=== PATIENT | female | born 1980 | race Caucasian/White ===

== ENCOUNTER → 2023-06-26 13:30 | Outpatient (BNVA) | payer MEDICAID, SELFPAY | PROVIDERS: Family Provider Family Medicine; PCP Nurse Practitioner; Visit Provider Nurse Practitioner Family | DX: R05.9 Cough, unspecified (principal); R06.02 Shortness of breath; R06.2 Wheezing | CPT/HCPCS: 71046 ==

== ENCOUNTER → 2023-08-21 10:15 | Outpatient (BNVA) | payer MEDICAID, SELFPAY | PROVIDERS: Family Provider Family Medicine; PCP Nurse Practitioner Family; Visit Provider Family Medicine | DX: I26.09 Other pulmonary embolism with acute cor pulmonale (principal); G47.30 Sleep apnea, unspecified | CPT/HCPCS: 80053; 80061; 84439; 84443; 85007; 85027 ==

== ENCOUNTER → 2023-08-29 10:45 | Outpatient (BNVA) | payer MEDICAID, SELFPAY | PROVIDERS: Family Provider Family Medicine; PCP Nurse Practitioner Family; Visit Provider Family Medicine | DX: R74.01 Elevation of levels of liver transaminase levels (principal); I26.09 Other pulmonary embolism with acute cor pulmonale; G47.30 Sleep apnea, unspecified | CPT/HCPCS: 85025 ==

== ENCOUNTER 2023-09-12 06:03 | Outpatient (CLI) | payer MEDICAID, SELFPAY ==
--- NOTE | 2023-09-12 06:30 | US_ITS ---
WS: [id number] ULTRASOUND ABDOMEN CLINICAL INFORMATION: R74.01 - Elevation of levels of liver transaminase levels COMPARISON: None. FINDINGS: Technically difficult study due to body habitus. Liver Size: Mild hepatomegaly. Craniocaudal length: 17.8 cm. Echogenicity: Coarse Surface nodularity: None. Mass (size and location): Echogenic lesion in the RIGHT hepatic lobe measuring 1.7 x 1.3 x 1.1 cm lik jayesh cavernous hemangioma. Bile ducts Intrahepatic ducts: Normal. Common bile duct diameter: 0.2 cm. Gallbladder Normal. Gallstones: None. Gallbladder sludge: None. Gallbladder wall thickening: None. Pericholecystic fluid: None. Sonographic Gooden sign: Absent. Pancreas Not well seen Spleen Splenomegaly: None. Craniocaudal length: 10.3 cm. Right kidney: Normal. Hydronephrosis: None. Size: 11.5 cm x 4.8 cm x 4.9 cm Left kidney: Normal. Hydronephrosis: None. Size: 11.1 cm x 5.4 cm x 4.6 cm. Abdominal aorta and IVC Visualized portions are normal. Ascites: None. IMPRESSION: 1. Mild hepatomegaly with mild diffuse fatty infiltration. 2. Solid echogenic lesion RIGHT hepatic lobe 1.7 x 1.3 x 1.1 cm likely cavernous hemangioma. Recomme nd further evaluation with contrast-enhanced CT abdomen pelvis with liver hemangioma protocol 3. Normal gallbladder. 4. Normal common bile duct. 5. No hydronephrosis in either kidney.
== END 2023-09-12 06:04 | disposition home or self-care (01) ==
LOC: RAD 06:03
PROVIDERS: Family Provider Family Medicine; PCP Family Medicine; Visit Provider Family Medicine
DX: R74.01 Elevation of levels of liver transaminase levels (principal); I26.09 Other pulmonary embolism with acute cor pulmonale; K76.0 Fatty (change of) liver, not elsewhere classified; R16.0 Hepatomegaly, not elsewhere classified; K76.9 Liver disease, unspecified
CPT/HCPCS: 76700

== ENCOUNTER → 2023-09-20 10:50 | Outpatient (BNVA) | payer MEDICAID, SELFPAY | PROVIDERS: Family Provider Family Medicine; PCP Family Medicine; Referring Provider Family Medicine; Visit Provider Internal Medicine Pulmonary Disease | DX: I26.09 Other pulmonary embolism with acute cor pulmonale (principal); R06.02 Shortness of breath; I27.20 Pulmonary hypertension, unspecified; R79.89 Other specified abnormal findings of blood chemistry | CPT/HCPCS: 36415; 85651; 86038; 86140; 86200; 86235; 86431 ==

== ENCOUNTER 2023-09-28 13:36 | Outpatient (CLI) | payer MEDICAID, SELFPAY ==
[2023-09-28] MEDS: iohexol 350 mg/mL 500 mL Btl (per mL) PO (14:16)
[2023-09-28] MEDS: iohexol 350 mg/mL 500 mL Btl (per mL) IV (14:37)
--- NOTE | 2023-09-28 15:30 | CT_ITS ---
WS: [id number] CT ABDOMEN AND PELVIS WITH CONTRAST HISTORY: R74.01 - Elevation of levels of liver transaminase levels TECHNIQUE: Imaging performed of the abdomen and pelvis with IV contrast. Single phase imaging of the abdomen. Coronal and sagittal reformats are submitted. All CT scans at [facility] use at [address] one of these dose optimization techniques: automated exposure control; mA and/or kV adjustment per patient size (includes targeted exams where dose is matched to clinical indication); or iterative re construction. IV CONTRAST: Omnipaque 350; 100 mL IV. Oral contrast: Yes. DLP: 1033.18 mGy.cm COMPARISON: Abdomen ultrasound 09/12/2023 Lower thorax: Lung bases are clear. Heart is normal size. No hiatal hernia. Liver/biliary system: Liver is mildly enlarged. There numerous scattered very small low-attenuation l manda nodules throughout the liver which cannot be characterized due to their small size. The largest l ow-attenuation mass in the central RIGHT liver measures 8 mm. Hemangioma protocol was not performed a s recommended. No duct dilatation. Gallbladder: Normal. No gallstones or wall thickening. No pericholecystic fluid. Pancreas: Normal size pancreas and pancreatic duct. No adjacent inflammation. Spleen: Normal size spleen. Scattered splenic hypodense nodules are identified. Uncertain etiology. Adrenal glands: Normal. Right kidney: Normal. Left kidney: Normal. Aorta: Normal. Lymphadenopathy: None. Free fluid: None. GI tract: Unremarkable. Abdominal wall: Unremarkable abdominal wall. No hernia. Pelvis: No free fluid or adenopathy within the pelvis. Negative uterus and ovaries. Bones: Unremarkable. IMPRESSION: 1. Enlarged liver with too small to characterize hypodense nodules scattered throughout. These may b e tiny cysts. Additional differential includes metastatic disease, biliary hamartomas and tiny absces ses. The most likely etiology are too small to characterize cysts. No hemangioma identified. 2. Normal size spleen with numerous scattered hypodense nodules. Differential includes small splenic cysts, sarcoidosis or lymphoma. 3. Consider reevaluation of the liver and spleen by CT in 3 to 4 months. Recommend three-phase CT pr otocol for best characterization. 4. No GI tract obstruction. No adenopathy or ascites.
== END 2023-09-28 13:37 | disposition home or self-care (01) ==
LOC: RAD 13:37
PROVIDERS: Family Provider Family Medicine; PCP Family Medicine; Visit Provider Family Medicine
DX: R74.01 Elevation of levels of liver transaminase levels (principal); R93.89 Abnormal findings on diagnostic imaging of other specified body structures; R16.0 Hepatomegaly, not elsewhere classified; K76.89 Other specified diseases of liver; D73.89 Other diseases of spleen
CPT/HCPCS: 74177; Q9967

== ENCOUNTER 2023-10-23 14:34 | Oncology outpatient (recurring) (ONCR) | payer MEDICAID, SELFPAY ==
[2023-10-23 16:13] LABS: Basophils # 0.1 10^3/uL (0.0-0.1); Basophils % 0.7 %; Eosinophils # 0.2 10^3/uL (0.0-0.8); Eosinophils % 2.3 %; Hematocrit 54.5 % (36-47); Lymphocytes # 2.2 10^3/uL (0.8-4.8); Lymphocytes % 32.4 %; Mean Corpuscular HGB Conc 34.3 g/dL (30-55); Mean Corpuscular Hemoglobin 31.3 pg (27-33); Mean Corpuscular Volume 91.3 fl (85-98); Mean Platelet Volume 10.1 fL (7.4-10.4); Monocytes # 0.5 10^3/uL (0.2-0.9); Monocytes % 6.7 %; Neutrophils # 3.93 10^3/uL (1.8-7.7); Neutrophils % 57.3 %; Nucleated Red Blood Cells % 0 %; Platelet Count 209 10^3/cmm (157-399); Red Blood Count 5.97 10^6/uL (3.85-5.65); Red Cell Distribution Width 15.6 % (12.1-15.1); White Blood Count 6.86 10^3/uL (3.29-11.43)
[2023-10-23 16:58] LABS: Alanine Aminotransferase 32 U/L (0-33); Albumin Level 4.1 g/dL (3.5-5.2); Alkaline Phosphatase 115 U/L (35-105); Aspartate Amino Transferase 34 U/L (0-32); Blood Urea Nitrogen 18 mg/dL (6-20); Calcium 9.7 mg/dL (8.5-10.5); Carbon Dioxide 22 mmol/L (22-29); Chloride 101 mmol/L (98-107); Ferritin 77 ng/mL (15-150); Globulin 3.6 g/dL (1.3-4.6); Glomerular Filtration Rate 91.8 mL/min (90-130); Glucose 109 mg/dL (65-115); Iron 133 ug/dL (37-145); Osmolality Calculated 284 mOsm/kg (285-295); Percent Saturation 35.5 % (20-50); Sodium 136 mmol/L (136-145); Total Bilirubin 0.7 mg/dL (0.15-1.2); Total Iron Binding Capacity 374 mcg/dl; Total Protein 7.7 g/dL (6.6-8.7); Unsaturated Iron Binding 241 ug/dL (112-347)
[2023-10-23 17:03] LABS: Anion Gap 17.5 (5-19); Lactate Dehydrogenase 268 U/L (135-214); Potassium 4.5 mmol/L (3.5-5.1)
[2023-10-23 17:07] LABS: Hepatitis A Antibody IgM Non-Reactive (Nonreactive); Hepatitis B Core AB, Total Non-Reactive (Nonreactive); Hepatitis B Surface AB < 3.5 (11.5-1000); Hepatitis B Surface Antigen Non-Reactive (Nonreactive); Hepatitis C Virus Antibody Non-Reactive (Nonreactive)
[2023-10-24 15:11] LABS: Creatinine, Random Urine 20 mg/dL (20-275); Protein, Total, Random 14 mg/dL (5-24); Protein/Creatinine Ratio 700 mg/g creat (24-184)
[2023-10-25 08:05] LABS: PROTEIN, TOTAL 7.3 g/dL (6.1-8.1)
[2023-10-25 12:48] LABS: Albumin,Urine Random 100 %; Alpha-1-Globulins Urine Random 0 %; Alpha-2-Globulins Urine Random 0 %; Beta-Globulin,Urine Random 0 %; Gamma Globulin,Urine Random 0 %
[2023-10-26 08:21] LABS: KAPPA LIGHT CHAIN, FREE, SERUM 24.5 mg/L (3.3-19.4); KAPPA/LAMBDA LIGHT CHAINS FREE 1.43 (0.26-1.65); LAMBDA LIGHT CHAIN, FREE, SERU 17.1 mg/L (5.7-26.3)
[2023-10-26 13:11] LABS: Erythropoietin 36.3 mIU/mL (2.6-18.5)
[2023-10-26 17:19] LABS: ALBUMIN 4.2 g/dL (3.8-4.8); ALPHA 1 GLOBULIN 0.3 g/dL (0.2-0.3); ALPHA 2 GLOBULIN 0.7 g/dL (0.5-0.9); BETA 1 GLOBULIN 0.5 g/dL (0.4-0.6); BETA 2 GLOBULIN 0.4 g/dL (0.2-0.5); GAMMA GLOBULIN 1.2 g/dL (0.8-1.7)
[2023-10-31 18:15] LABS: CALR Exon 9 Mutation NOT DETECTED (NOT DETECTED); CSF3R Exon 14/17 Mutation NOT DETECTED (NOT DETECTED); JAK2 Exon 12 Mutation NOT DETECTED (NOT DETECTED); JAK2 V617 Block Specimen ID NG; JAK2 V617 Clinical Indication NG; JAK2 V617 Mutation NOT DETECTED (NOT DETECTED); JAK2 V617 Specimen Source NG; MPL Exon 12 Mutation NOT DETECTED (NOT DETECTED)
== END 2023-10-24 23:59 | disposition home or self-care (01) ==
PROVIDERS: Internal Medicine; PCP Family Medicine; Visit Provider Family Medicine
DX: D75.1 Secondary polycythemia (principal); D18.03 Hemangioma of intra-abdominal structures
CPT/HCPCS: 36415; 80053; 81270; 81279; 81339; 81479; 82570; 82668; 82728; 83540; 83550; 83615; 83883; 84155; 84156; 84165; 84166; 85025; 86334; 86705; 86706; 86709; 86803; 87340

== ENCOUNTER 2023-11-20 20:00 | Outpatient (CLI) | payer MEDICAID, SELFPAY | END 2023-11-20 20:01 | disposition home or self-care (01) | LOC: SLEEP 11-21 06:21 | PROVIDERS: PCP Family Medicine; Visit Provider Family Medicine | DX: G47.33 Obstructive sleep apnea (adult) (pediatric) (principal) | CPT/HCPCS: 95810 ==

== ENCOUNTER 2023-11-21 07:36 | Oncology outpatient (recurring) (ONCR) | payer MEDICAID, SELFPAY ==
[2023-11-21 08:05] LABS: Basophils % 0.8 %; Eosinophils # 0.1 10^3/uL (0.0-0.8); Eosinophils % 2.8 %; Hematocrit 52.9 % (36-47); Lymphocytes # 1.8 10^3/uL (0.8-4.8); Lymphocytes % 36.5 %; Mean Corpuscular HGB Conc 34.4 g/dL (30-55); Mean Platelet Volume 10.1 fL (7.4-10.4); Monocytes # 0.3 10^3/uL (0.2-0.9); Monocytes % 6.6 %; Neutrophils # 2.62 10^3/uL (1.8-7.7); Neutrophils % 52.5 %; Nucleated Red Blood Cells % 0 %; Platelet Count 205 10^3/cmm (157-399); Red Blood Count 5.69 10^6/uL (3.85-5.65); Red Cell Distribution Width 15.9 % (12.1-15.1); White Blood Count 4.99 10^3/uL (3.29-11.43)
[2023-11-21 08:22] LABS: Alanine Aminotransferase 48 U/L (0-33); Albumin Level 3.9 g/dL (3.5-5.2); Alkaline Phosphatase 115 U/L (35-105); Anion Gap 17.4 (5-19); Aspartate Amino Transferase 43 U/L (0-32); Blood Urea Nitrogen 30 mg/dL (6-20); Calcium 9.6 mg/dL (8.5-10.5); Carbon Dioxide 21 mmol/L (22-29); Chloride 104 mmol/L (98-107); Globulin 3.1 g/dL (1.3-4.6); Glomerular Filtration Rate 60.8 mL/min (90-130); Glucose 139 mg/dL (65-115); Osmolality Calculated 294 mOsm/kg (285-295); Potassium 4.4 mmol/L (3.5-5.1); Sodium 138 mmol/L (136-145); Total Bilirubin 0.5 mg/dL (0.15-1.2)
[2023-11-21 08:29] LABS: Lactate Dehydrogenase 258 U/L (135-214)
[2023-11-21] MEDS: sodium chloride 0.9% 250 ML IV (10:45)
[2023-11-21 11:07] VITALS: BP 134/86
== END 2023-11-22 23:59 | disposition home or self-care (01) ==
PROVIDERS: Internal Medicine; PCP Family Medicine; Visit Provider Family Medicine
DX: D75.1 Secondary polycythemia (principal)
CPT/HCPCS: 36415; 80053; 83615; 85025; 99195; J7050

== ENCOUNTER 2023-12-12 20:00 | Outpatient (CLI) | payer MEDICAID, SELFPAY | END 2023-12-12 20:01 | disposition home or self-care (01) | LOC: SLEEP 12-13 05:57 | PROVIDERS: PCP Family Medicine; Visit Provider Internal Medicine Pulmonary Disease | DX: G47.33 Obstructive sleep apnea (adult) (pediatric) (principal) | CPT/HCPCS: 95811 ==

== ENCOUNTER 2023-12-25 10:13 | Outpatient (CLI) | payer MEDICAID, SELFPAY | END 2023-12-25 10:14 | disposition home or self-care (01) | LOC: RT 10:14 | PROVIDERS: PCP Family Medicine; Visit Provider Internal Medicine Pulmonary Disease | DX: R06.02 Shortness of breath (principal) | CPT/HCPCS: 94010; 94618; 94726; 94729 ==

== ENCOUNTER 2023-12-25 12:59 | Oncology outpatient (recurring) (ONCR) | payer MEDICAID, SELFPAY ==
[2023-12-25 13:12] LABS: Basophils % 0.5 %; Eosinophils # 0.2 10^3/uL (0.0-0.8); Eosinophils % 1.9 %; Hematocrit 51.1 % (36-47); Lymphocytes # 2.3 10^3/uL (0.8-4.8); Lymphocytes % 29.6 %; Mean Corpuscular HGB Conc 33.5 g/dL (30-55); Mean Corpuscular Hemoglobin 31.8 pg (27-33); Mean Platelet Volume 10.5 fL (7.4-10.4); Monocytes # 0.6 10^3/uL (0.2-0.9); Monocytes % 7.8 %; Neutrophils # 4.58 10^3/uL (1.8-7.7); Neutrophils % 59.6 %; Nucleated Red Blood Cells % 0 %; Platelet Count 206 10^3/cmm (157-399); Red Blood Count 5.38 10^6/uL (3.85-5.65); Red Cell Distribution Width 13.9 % (12.1-15.1)
[2023-12-25 13:29] LABS: Alanine Aminotransferase 40 U/L (0-33); Albumin Level 4.2 g/dL (3.5-5.2); Alkaline Phosphatase 110 U/L (35-105); Anion Gap 17.4 (5-19); Aspartate Amino Transferase 44 U/L (0-32); Blood Urea Nitrogen 24 mg/dL (6-20); Calcium 9.7 mg/dL (8.5-10.5); Carbon Dioxide 20 mmol/L (22-29); Chloride 105 mmol/L (98-107); Globulin 3.4 g/dL (1.3-4.6); Glomerular Filtration Rate 68.7 mL/min (90-130); Glucose 119 mg/dL (65-115); Lactate Dehydrogenase 310 U/L (135-214); Osmolality Calculated 291 mOsm/kg (285-295); Potassium 4.4 mmol/L (3.5-5.1); Sodium 138 mmol/L (136-145); Total Bilirubin 0.8 mg/dL (0.15-1.2); Total Protein 7.6 g/dL (6.6-8.7)
[2023-12-25 16:19] VITALS: BP 105/62; PULSE 76; RESP 16; TEMP 36.9; O2SAT 95
== END 2024-01-22 23:59 | disposition home or self-care (01) ==
PROVIDERS: Internal Medicine; PCP Family Medicine; Visit Provider Family Medicine
DX: D75.1 Secondary polycythemia (principal)
CPT/HCPCS: 36415; 80053; 83615; 85025; 99195

== ENCOUNTER 2024-01-29 10:54 | Oncology outpatient (recurring) (ONCR) | payer MEDICAID, SELFPAY ==
[2024-01-29 11:29] LABS: Basophils # 0.1 10^3/uL (0.0-0.1); Basophils % 0.8 %; Eosinophils # 0.2 10^3/uL (0.0-0.8); Eosinophils % 2.4 %; Hematocrit 52.3 % (36-47); Lymphocytes # 1.8 10^3/uL (0.8-4.8); Lymphocytes % 28.4 %; Mean Corpuscular HGB Conc 32.7 g/dL (30-55); Mean Corpuscular Hemoglobin 30.3 pg (27-33); Mean Corpuscular Volume 92.6 fl (85-98); Mean Platelet Volume 10.2 fL (7.4-10.4); Monocytes # 0.5 10^3/uL (0.2-0.9); Monocytes % 7.4 %; Neutrophils # 3.84 10^3/uL (1.8-7.7); Neutrophils % 60.7 %; Nucleated Red Blood Cells % 0 %; Platelet Count 227 10^3/cmm (157-399); Red Blood Count 5.65 10^6/uL (3.85-5.65); Red Cell Distribution Width 13.6 % (12.1-15.1); White Blood Count 6.33 10^3/uL (3.29-11.43)
[2024-01-29 11:48] LABS: Alanine Aminotransferase 29 U/L (0-33); Albumin Level 4.4 g/dL (3.5-5.2); Alkaline Phosphatase 105 U/L (35-105); Anion Gap 16.2 (5-19); Aspartate Amino Transferase 31 U/L (0-32); Blood Urea Nitrogen 20 mg/dL (6-20); Carbon Dioxide 26 mmol/L (22-29); Chloride 101 mmol/L (98-107); Globulin 3.7 g/dL (1.3-4.6); Glomerular Filtration Rate 78.3 mL/min (90-130); Glucose 104 mg/dL (65-115); Osmolality Calculated 291 mOsm/kg (285-295); Potassium 4.2 mmol/L (3.5-5.1); Sodium 139 mmol/L (136-145); Total Protein 8.1 g/dL (6.6-8.7)
[2024-01-29 12:32] LABS: Lactate Dehydrogenase 276 U/L (135-214)
[2024-01-29 14:39] VITALS: PULSE 78; RESP 16; TEMP 36.6; O2SAT 96
== END 2024-02-22 23:59 | disposition home or self-care (01) ==
PROVIDERS: Nurse Practitioner Family; PCP Family Medicine; Visit Provider Family Medicine
DX: D75.1 Secondary polycythemia (principal); D18.03 Hemangioma of intra-abdominal structures
CPT/HCPCS: 36415; 80053; 83615; 85025; 99195

== ENCOUNTER 2024-03-18 08:57 | Oncology outpatient (recurring) (ONCR) | payer MEDICAID, SELFPAY ==
[2024-03-18 09:16] LABS: Basophils # 0.1 10^3/uL (0.0-0.1); Basophils % 0.9 %; Eosinophils # 0.1 10^3/uL (0.0-0.8); Eosinophils % 2.2 %; Hematocrit 48.8 % (36-47); Lymphocytes # 1.6 10^3/uL (0.8-4.8); Lymphocytes % 30.1 %; Mean Corpuscular HGB Conc 31.8 g/dL (30-55); Mean Corpuscular Hemoglobin 28.1 pg (27-33); Mean Corpuscular Volume 88.6 fl (85-98); Mean Platelet Volume 10.6 fL (7.4-10.4); Monocytes # 0.4 10^3/uL (0.2-0.9); Monocytes % 7.3 %; Neutrophils # 3.15 10^3/uL (1.8-7.7); Neutrophils % 58.9 %; Nucleated Red Blood Cells % 0 %; Platelet Count 238 10^3/cmm (157-399); Red Blood Count 5.51 10^6/uL (3.85-5.65); Red Cell Distribution Width 15.5 % (12.1-15.1); White Blood Count 5.35 10^3/uL (3.29-11.43)
[2024-03-18 09:37] LABS: Alanine Aminotransferase 20 U/L (0-33); Alkaline Phosphatase 95 U/L (35-105); Anion Gap 15.2 (5-19); Aspartate Amino Transferase 23 U/L (0-32); Blood Urea Nitrogen 26 mg/dL (6-20); Calcium 9.6 mg/dL (8.5-10.5); Carbon Dioxide 23 mmol/L (22-29); Chloride 103 mmol/L (98-107); Globulin 3.4 g/dL (1.3-4.6); Glomerular Filtration Rate 68.3 mL/min (90-130); Glucose 97 mg/dL (65-115); Lactate Dehydrogenase 260 U/L (135-214); Osmolality Calculated 289 mOsm/kg (285-295); Potassium 4.2 mmol/L (3.5-5.1); Sodium 137 mmol/L (136-145); Total Bilirubin 0.7 mg/dL (0.15-1.2); Total Protein 7.4 g/dL (6.6-8.7)
== END 2024-03-23 23:59 | disposition home or self-care (01) ==
PROVIDERS: Nurse Practitioner Family; PCP Family Medicine; Visit Provider Family Medicine
DX: D75.1 Secondary polycythemia (principal); D18.03 Hemangioma of intra-abdominal structures
CPT/HCPCS: 36415; 80053; 83615; 85025

== ENCOUNTER 2024-04-02 05:42 | Emergency (ER) | payer MEDICAID, SELFPAY ==
[2024-04-02] VITALS (9 sets, daily range): BP systolic 106–163; BP diastolic 70–97; PULSE 72–84; RESP 16–22; TEMP 36.6; O2SAT 92–97; BMI 42.4
--- NOTE | 2024-04-02 05:53 | XRR_ITS ---
PROCEDURE INFORMATION: Exam: XR Chest Exam date and time: 04/02/2024 5:58 AM Age: 44 years old Clinical indication: Angina; Additional info: Chest TECHNIQUE: Imaging protocol: Radiologic exam of the chest. Views: 1 view. COMPARISON: CR XR chest 2V* [id number] 06/26/2023 1:43 PM FINDINGS: Lungs: Unremarkable. No consolidation. Pleural spaces: Unremarkable. No pleural effusion. No pneumothorax. Heart/Mediastinum: Unremarkable. No cardiomegaly. Bones/joints: Unremarkable. XR/XR chest 1V portable [id number] IMPRESSION: No acute findings.
--- NOTE | 2024-04-02 06:00 | CTR_ITS ---
PROCEDURE INFORMATION: Exam: CTA Chest With Contrast Exam date and time: 04/02/2024 6:07 AM Age: 44 years old Clinical indication: Angina; Additional info: Chest pain, dyspnea TECHNIQUE: Imaging protocol: Computed tomographic angiography of the chest with contrast. Exam focused on the arteries. 3D rendering (Not supervised by radiologist): MIP and/or 3D reconstructed images were created by the technologist. Radiation optimization: All CT scans at this facility use at least one of these dose optimization techniques: automated exposure control; mA and/or kV adjustment per patient size (includes targeted exams where dose is matched to clinical indication); or iterative reconstruction. Contrast material: OMNI 350; Contrast volume: 62 ml; Contrast route: INTRAVENOUS (IV); COMPARISON: CR (CHEST, ) 04/02/2024 5:58 AM RADIATION DOSE METRICS: Total DLP (mGy-cm): 479.2 FINDINGS: Pulmonary arteries: The main pulmonary artery is dilated at 4.6 cm. The right main pulmonary artery is 3 cm, and left main pulmonary artery is 3.1 cm. Pulmonary arterial hypertension may be present. No evidence of pulmonary embolus. Aorta: Unremarkable. No aortic aneurysm. No aortic dissection. Lungs: Unremarkable. No consolidation. No masses. Pleural spaces: Unremarkable. No pneumothorax. No pleural effusion. Heart: Unremarkable. No cardiomegaly. No pericardial effusion. Lymph nodes: Unremarkable. No enlarged lymph nodes. Bones/joints: Unremarkable. No acute fracture. Soft tissues: Unremarkable. CT/CT angio chest PE protcl [id number] IMPRESSION: Likely pulmonary arterial hypertension. No embolus.
--- NOTE | 2024-04-02 06:01 | W.ED.CHESTPA ---
HPI - Chest Pain General: Chief Complaint: Shortness of Breath/Dyspnea Stated Complaint: JONA Sosa,Headree Time Seen by Provider: 04/02/24 05:52 Source: patient Mode of arrival: ambulatory History of Present Illness: 44-year-old female presents emergency room complaining of left-sided chest pain radiating to her back with cough for the last 2 days. She has a history of pulmonary hypertension. She was previously admitted to [facility] for this. She is also seen cardiology and heme-onc. She had polycythemia thought to be secondary to her pulmonary hypertension and sleep apnea for while she was getting phlebotomized. They have ceased that. There is note from cardiology they consider doing a right-sided heart cath but does not look as if that has been done to this point. She notes increasing shortness of breath with activity as well as chest discomfort. 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 No fever sweats or chills no productive cough. She was seeing Dr. Balbuena prior to his leaving service here. She does not have any old EKGs on the chart. MD complaint: chest pain Pertinent past history: other (Cor pulmonale) Onset (ago): day(s) (2) Timing of current episode: episodic Prior episodes: Yes Pain location: left chest Pain radiation: back Relieving factors: nothing Exacerbating factors: nothing Associated symptoms: Reports dyspnea; Deny abdominal pain, diaphoresis, fever(s), leg edema, nausea, palpitations, sense of impending doom, syncope or vomiting Review of Systems Const: Denies: fever(s) or diaphoresis Card: Reports: chest pain; Denies: palpitations or syncope Resp: Reports: dyspnea GI: Denies: abdominal pain, nausea or vomiting : Denies: dysuria, urinary frequency or urinary urgency Musc: Denies: neck pain or back pain Skin/Breast: Denies: rash PFSH ED PFSH: Medical History Hypertension Sleep apnea Cor pulmonale, acute History of methamphetamine use Social History Smoking and tobacco/nicotine status: former use of tobacco/nicotine Alcohol intake: never Female Reproductive History: Date of last menstrual period: 03/26/24 Physical Exam Const: GENERAL APPEARANCE: cooperative and comfortable ORIENTATION/CONSCIOUSNESS: Yes awake, Yes oriented to person, Yes oriented to place and Yes oriented to time HENMT: COMMON NORMALS: normocephalic, atraumatic and hearing grossly normal bilaterally HEAD & SCALP: normocephalic and atraumatic Resp: COMMON NORMALS: normal respiratory effort, No retractions, No use of accessory muscles and clear to auscultation bilaterally AUSCULTATION: clear to auscultation bilaterally Cardio: COMMON NORMALS: regular rate, regular rhythm and No murmurs present (Cardio) RATE: regular rate RHYTHM: regular rhythm GI: COMMON NORMALS: Soft to palpation and No hepatosplenomegaly present AUSCULTATION: Yes normoactive bowel sounds PALPATION: Yes Soft to palpation, No Tenderness to palpation present (GI), No Guarding due to palpation present (GI) and Yes No hepatosplenomegaly present Extremity: COMMON NORMALS: normal to inspection, capillary refill normal, no clubbing, cyanosis or edema, no calf tenderness and no pedal edema Neuro: SENSORIUM/ORIENTATION: Yes oriented to person, Yes oriented to place and Yes oriented to time Skin: COMMON NORMALS: no rashes or lesions noted GENERAL SKIN EXAM: no rashes or lesions noted Course Vital Signs: Vital signs: Vital Signs Temperature 97.8 F 04/02/24 10:59 Pulse Rate 78 04/02/24 10:59 Respiratory Rate 18 04/02/24 10:59 Blood Pressure 147/86 04/02/24 10:59 Pulse Oximetry 97 04/02/24 10:59 Oxygen Delivery Me thod Room Air 04/02/24 10:48 MDM - Chest Pain Medical Decision Making Cardiac enzymes negative EKG shows RVH ST depression. We did get an old EKG from [place] that does not show any significant change. I suspect her symptoms are due largely to her pulmonary hypertension. I discussed case with Dr. Cuellar as well. Also reviewed her previous cardiology notes from Dr. Bailey who had recommended a right heart cath at some point but she has not yet had this done. No acute coronary syndrome at this time will discharge patient home she did have improvement with nebulizers discharged home with DuoNebs to use as needed steroid taper. Set up for an outpatient echo a Lexiscan sestamibi stress test. Also set up for follow-up with cardiology and pulmonology Medical Records I reviewed the patient's medical records. Lab Data I reviewed the patient's lab results. 04/02/24 05:59 04/02/24 05:59 Radiology Impressions Chest X-Ray 04/02/24 05:53 IMPRESSION: No acute findings. Chest CTA 04/02/24 06:00 IMPRESSION: Likely pulmonary arterial hypertension. No embolus. Laboratory Results WBC 10.68 10^3/uL (3.29-11.43) 04/02/24 05:59 RBC 5.87 10^6/uL (3.85-5.65) H 04/02/24 05:59 Hgb 16.50 g/dL (11.27-16.99) 04/02/24 05:59 Hct 52.6 % (36-47) H 04/02/24 05:59 MCV 89.6 fl (85-98) 04/02/24 05:59 MCH 28.1 pg (27-33) 04/02/24 05:59 MCHC 31.4 g/dL (30-55) 04/02/24 05:59 RDW 16.2 % (12.1-15.1) H 04/02/24 05:59 Plt Count 216 10^3/cmm (157-399) 04/02/24 05:59 MPV 10.4 fL (7.4-10.4) 04/02/24 05:59 Neut % (Auto) 84.2 % 04/02/24 05:59 Lymph % (Auto) 11.0 % 04/02/24 05:59 [place] % (Auto) 3.4 % 04/02/24 05:59 Eos % (Auto) 0.6 % 04/02/24 05:59 Baso % (Auto) 0.3 % 04/02/24 05:59 Neut # (Auto) 9.01 10^3/uL (1.8-7.7) H 04/02/24 05:59 Lymph # (Auto) 1.2 10^3/uL (0.8-4.8) 04/02/24 05:59 [place] # (Auto) 0.4 10^3/uL (0.2-0.9) 04/02/24 05:59 Eos # (Auto) 0.1 10^3/uL (0.0-0.8) 04/02/24 05:59 Baso # (Auto) 0.0 10^3/uL (0.0-0.1) 04/02/24 05:59 Nucleated RBC % (auto) 0 % 04/02/24 05:59 Nucleated RBCs # 0.0 /100WBC 04/02/24 05:59 Sodium 138 mmol/L (136-145) 04/02/24 05:59 Potassium 4.4 mmol/L (3.5-5.1) 04/02/24 05:59 Chloride 100 mmol/L (98-107) 04/02/24 05:59 Carbon Dioxide 24 mmol/L (22-29) 04/02/24 05:59 Anion Gap 18.4 (5-19) 04/02/24 05:59 BUN 25 mg/dL (6-20) H 04/02/24 05:59 Creatinine 0.9 mg/dL (0.5-0.9) 04/02/24 05:59 GFR Calculation 68.3 mL/min (90-130) L 04/02/24 05:59 Glucose 163 mg/dL (65-115) H 04/02/24 05:59 Calculated Osmolality 294 mOsm/kg (285-295) 04/02/24 05:59 Calcium 9.7 mg/dL (8.5-10.5) 04/02/24 05:59 Total Bilirubin 0.5 mg/dL (0.15-1.2) 04/02/24 05:59 AST 26 U/L (0-32) 04/02/24 05:59 ALT 24 U/L (0-33) 04/02/24 05:59 Alkaline Phosphatase 111 U/L (35-105) H 04/02/24 05:59 Troponin T Baseline 7 ng/L (0-10) 04/02/24 05:59 Troponin T 120 Minute 6.00 ng/L (0-10) 04/02/24 07:41 Delta Troponin T -1.00 ABS# (0-10) L 04/02/24 07:41 NT-Pro-B Natriuret Pep 1514 pg/mL (0-125) H 04/02/24 05:59 Total Protein 7.6 g/dL (6.6-8.7) 04/02/24 05:59 Albumin 4.4 g/dL (3.5-5.2) 04/02/24 05:59 Globulin 3.2 g/dL (1.3-4.6) 04/02/24 05:59 Urine Color Yellow (Yellow) 04/02/24 06:21 Urine Appearance Clear (CLEAR) 04/02/24 06:21 Urine pH 5 (5-7) 04/02/24 06:21 Ur Specific [place] 1.010 (1.005-1.030) 04/02/24 06:21 Urine Protein 2+ (Negative) H 04/02/24 06:21 Urine Glucose (UA) Norm (Normal) 04/02/24 06:21 Urine Ketones Negative (Negative) 04/02/24 06:21 Urine Blood Neg (Negative) 04/02/24 06:21 Urine Nitrate Negative (Negative) 04/02/24 06:21 Urine Bilirubin Neg (Negative) 04/02/24 06:21 Urine Urobilinogen 1 mg/dL (Negative) H 04/02/24 06:21 Ur Leukocyte Esterase Trace (Negative) H 04/02/24 06:21 Urine RBC None /hpf (0-2) 04/02/24 06:21 Urine WBC 0-4 /hpf (0-5) H 04/02/24 06:21 Ur Squamous Epith Cells 5-10 /hpf (0-5) H 04/02/24 06:21 Amorphous Sediment Not Reportable 04/02/24 06:21 Urine Bacteria None /hpf (NONE) 04/02/24 06:21 All radiology interpretation(s) finalized by discharge Discharge Plan Discharge Patient Disposition: Home Clinical Impression: Pulmonary arterial hypertension Condition: Stable Prescriptions: New ipratropium-albuterol 0.5 mg-3 mg(2.5 mg base)/3 mL solution for nebulization 3 ml inhalation Q4H PRN (Reason: shortness of breath or wheezing) Qty: 90 0RF No Action furosemide 40 mg tablet 40 mg PO DAILY Qty: 90 3RF escitalopram oxalate 10 mg tablet 10 mg PO DAILY Qty: 30 1RF Rx Instructions: Take 1/2 tab for 14 days then 1 tab daily. lisinopril 10 mg tablet 20 mg PO DAILY Qty: 90 3RF Rx Instructions: 2 tabs in AM and 1 tab in PM spironolactone 25 mg tablet 25 mg PO DAILY Qty: 90 3RF alprazolam 0.5 mg tablet 0.5 mg PO BID PRN (Reason: anxiety) 30 Days Qty: 60 2RF amoxicillin-pot clavulanate 875-125 mg tablet 1 tab PO BID 10 Days Qty: 20 0RF codeine-guaifenesin 10-100 mg/5 mL liquid 5 ml PO Q6H PRN (Reason: allergy symptoms) Qty: 118 0RF prednisone 20 mg tablet 40 mg PO DAILY 5 Days Qty: 10 0RF Discharge Orders: Discharge ED (Routine); Ordered 04/02/24 Ordered By: Lewis Sheffield Referrals: Justin Landeros, [Primary Care Provider] - Discharge Diet: Usual diet Discharge Activity: Increase activity as tolerated Patient Instructions: Opioid Safety, Pain Management Activity Restrictions/Additional Instructions: Thank you for choosing [facility] for your healthcare needs today. It is very important that you follow up as instructed or that you return to the Emergency Department should you have concerns or if your condition changes or worsens in any way. You were seen today with complaints of shortness of breath with activity. Your cardiac enzymes were unremarkable. Your EKG shows changes consistent with your pulmonary hypertension after comparing it to EKGs you had done previously does not show anything that appears to be acute. We reviewed your old charts. I suspect that most of your symptoms are due to your pulmonary hypertension. You can use the nebulizer treatments to improve your breathing. Avoid heat and humidity as this may exacerbate your symptoms. Case management recommend make arrangements for you to follow-up with pulmonology and cardiology as well as having a repeat echocardiogram and a stress test. Return to the emergency room for further problems. Coding Level of Care Code ED [employer] [address]
--- NOTE | 2024-04-02 06:03 | ECG_ITS ---
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 Measurements Intervals [place] Rate: 82 P: 53 [place]: 159 QRS: 116 QRSD: 102 T: -67 QT: 355 QTc: 415 Interpretive Statements SINUS RHYTHM INCOMPLETE RIGHT BUNDLE BRANCH BLOCK [90+ ms QRS DURATION, TERMINAL R IN V1/V2, 40+ ms S IN I/aVL/V4/V5/V6] RIGHT VENTRICULAR HYPERTROPHY [SOME/ALL OF: PROMINENT R IN V1, LATE TRANSITION, RAD, BRIAN, SSS] ST DEVIATION AND MODERATE T-WAVE ABNORMALITY, CONSIDER ANTEROLATERAL ISCHEMIA [-0.1+ mV T-WAVE IN V3-V6] ST DEVIATION AND MODERATE T-WAVE ABNORMALITY, CONSIDER INFERIOR ISCHEMIA [-0.1+ mV T-WAVE IN II/aVF] No previous ECG available for comparison Electronically Signed On 04-02-2024 9:42:14 CDT by Tuan Rae M.D. [id number]
[2024-04-02] MEDS: aspirin 81 mg Chew Tablet 324 MG PO (06:06)
[2024-04-02 06:09] LABS: Basophils % 0.3 %; Eosinophils # 0.1 10^3/uL (0.0-0.8); Eosinophils % 0.6 %; Hematocrit 52.6 % (36-47); Lymphocytes # 1.2 10^3/uL (0.8-4.8); Mean Corpuscular HGB Conc 31.4 g/dL (30-55); Mean Corpuscular Hemoglobin 28.1 pg (27-33); Mean Corpuscular Volume 89.6 fl (85-98); Mean Platelet Volume 10.4 fL (7.4-10.4); Monocytes # 0.4 10^3/uL (0.2-0.9); Monocytes % 3.4 %; Neutrophils # 9.01 10^3/uL (1.8-7.7); Neutrophils % 84.2 %; Nucleated Red Blood Cells % 0 %; Platelet Count 216 10^3/cmm (157-399); Red Blood Count 5.87 10^6/uL (3.85-5.65); Red Cell Distribution Width 16.2 % (12.1-15.1); White Blood Count 10.68 10^3/uL (3.29-11.43)
[2024-04-02] MEDS: iohexol 350 mg/mL 500 mL Btl (per mL) IV (06:11)
[2024-04-02 06:23] LABS: Alanine Aminotransferase 24 U/L (0-33); Albumin Level 4.4 g/dL (3.5-5.2); Alkaline Phosphatase 111 U/L (35-105); Anion Gap 18.4 (5-19); Aspartate Amino Transferase 26 U/L (0-32); Blood Urea Nitrogen 25 mg/dL (6-20); Calcium 9.7 mg/dL (8.5-10.5); Carbon Dioxide 24 mmol/L (22-29); Chloride 100 mmol/L (98-107); Creatinine Clr Calc Pharmacy 109.5893; Globulin 3.2 g/dL (1.3-4.6); Glomerular Filtration Rate 68.3 mL/min (90-130); Glucose 163 mg/dL (65-115); Osmolality Calculated 294 mOsm/kg (285-295); Potassium 4.4 mmol/L (3.5-5.1); Sodium 138 mmol/L (136-145); Total Bilirubin 0.5 mg/dL (0.15-1.2); Total Protein 7.6 g/dL (6.6-8.7)
[2024-04-02 06:25] LABS: Troponin(5th) Baseline 7 ng/L (0-10)
[2024-04-02 06:45] LABS: Urine Appearance Clear (CLEAR); Urine Color Yellow (Yellow); pH Urine 5 (5-7)
[2024-04-02 06:46] LABS: Add Urine Culture? No; Add Urine Microscopic? YES; Bilirubin Urine Neg (Negative); Blood Urine Neg (Negative); Glucose Urine UA Norm (Normal); Ketones Urine Negative (Negative); Leukocyte Esterase Urine Trace (Negative); Nitrate Urine Negative (Negative); Protein Urine 2+ (Negative); Urobilinogen Urine 1 mg/dL (Negative); WBC Urine 0-4 /hpf (0-5)
[2024-04-02 07:09] LABS: NT Pro B Type Natriuretic Pept 1514 pg/mL (0-125)
--- NOTE | 2024-04-02 07:36 | PC.PHAR ---
PT VERIFIED MEDS AND HAD RX BOTTLES WITH HER. COUGH SYRUP NOT PICKED UP YET DUE TO PHARMACY HAD TO ORDER IT IN. LEXAPRO 10MG FROM 12/27/23-PICKED UP BUT NOT STARTED YET.
--- NOTE | 2024-04-02 08:11 | ECG_ITS ---
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 Measurements Intervals [place] Rate: 72 P: 50 [place]: 162 QRS: 124 QRSD: 92 T: -74 QT: 368 QTc: 404 Interpretive Statements SINUS RHYTHM INCOMPLETE RIGHT BUNDLE BRANCH BLOCK [90+ ms QRS DURATION, TERMINAL R IN V1/V2, 40+ ms S IN I/aVL/V4/V5/V6] RIGHT VENTRICULAR HYPERTROPHY [SOME/ALL OF: PROMINENT R IN V1, LATE TRANSITION, RAD, BRIAN, SSS] ST DEVIATION AND MODERATE T-WAVE ABNORMALITY, CONSIDER ANTEROLATERAL ISCHEMIA [-0.1+ mV T-WAVE IN V3-V6] ST DEVIATION AND MODERATE T-WAVE ABNORMALITY, CONSIDER INFERIOR ISCHEMIA [-0.1+ mV T-WAVE IN II/aVF] Compared to ECG 04/02/2024 06:03:20 No significant changes Electronically Signed On 04-02-2024 9:43:30 CDT by Tuan Rae M.D. [id number]
[2024-04-02] MEDS: ipratropium-albuterol 3 mL Neb INHALATION (08:50)
[2024-04-02] MEDS: dexamethasone 10 mg/mL INJ IM (08:58)
--- NOTE | 2024-04-02 11:55 | DCPLANNER ---
faxed echo and lexiscan orders to scheduling. heart/lung appt already made.
--- NOTE | 2024-04-02 12:52 | DCPLANNER ---
faxed outpatient echo to scheduling for er f/u
== END 2024-04-02 11:03 | disposition home or self-care (01) ==
PROVIDERS: Emergency Provider Family Medicine; PCP Family Medicine
DX: I27.21 Secondary pulmonary arterial hypertension (principal); I49.8 Other specified cardiac arrhythmias; I45.10 Unspecified right bundle-branch block; R94.31 Abnormal electrocardiogram [ECG] [EKG]
CPT/HCPCS: 36415; 71045; 71275; 80053; 81001; 83880; 84484; 85025; 93005; 94640; 96374; 99285; J1100; Q9967

== ENCOUNTER 2024-06-17 10:19 | Outpatient (CLI) | payer MEDICAID, SELFPAY ==
[2024-06-17 11:08] LABS: Anion Gap 16.2 (5-19); Blood Urea Nitrogen 9 mg/dL (6-20); Calcium 9.7 mg/dL (8.5-10.5); Carbon Dioxide 23 mmol/L (22-29); Chloride 102 mmol/L (98-107); Glomerular Filtration Rate 109.1 mL/min (90-130); Glucose 105 mg/dL (65-115); NT Pro B Type Natriuretic Pept 206 pg/mL (0-125); Osmolality Calculated 285 mOsm/kg (285-295); Potassium 3.2 mmol/L (3.5-5.1); Sodium 138 mmol/L (136-145)
== END 2024-06-17 10:20 | disposition home or self-care (01) ==
LOC: LAB 10:22
PROVIDERS: PCP Nurse Practitioner Family; Visit Provider Internal Medicine Pulmonary Disease
DX: I50.812 Chronic right heart failure (principal)
CPT/HCPCS: 36415; 80048; 83880

== ENCOUNTER → 2024-08-15 09:10 | Outpatient (BNVA) | payer MEDICAID, SELFPAY | PROVIDERS: PCP Nurse Practitioner Family; Visit Provider Nurse Practitioner Family | DX: R05.9 Cough, unspecified (principal); R52 Pain, unspecified | CPT/HCPCS: 87400 ==

== ENCOUNTER → 2024-09-30 09:30 | Outpatient (BNVA) | payer MEDICAID, SELFPAY | PROVIDERS: PCP Nurse Practitioner Family; Visit Provider Family Medicine | DX: J20.9 Acute bronchitis, unspecified (principal); R79.89 Other specified abnormal findings of blood chemistry; I50.811 Acute right heart failure; I27.21 Secondary pulmonary arterial hypertension; E87.6 Hypokalemia; E83.42 Hypomagnesemia; J20.8 Acute bronchitis due to other specified organisms | CPT/HCPCS: 80053; 82607; 82728; 83540; 83735; 83880; 85025 ==

== ENCOUNTER 2024-12-16 12:03 | Outpatient (CLI) | payer MEDICAID, SELFPAY ==
[2024-12-16 13:10] LABS: Basophils % 0.5 %; Eosinophils # 0.2 10^3/uL (0.0-0.8); Eosinophils % 2.7 %; Hematocrit 40.2 % (36-47); Lymphocytes # 1.5 10^3/uL (0.8-4.8); Lymphocytes % 27.3 %; Mean Corpuscular HGB Conc 31.3 g/dL (30-55); Mean Corpuscular Hemoglobin 25.6 pg (27-33); Mean Corpuscular Volume 81.7 fl (85-98); Mean Platelet Volume 9.7 fL (7.4-10.4); Monocytes # 0.4 10^3/uL (0.2-0.9); Monocytes % 6.9 %; Neutrophils % 62.1 %; Nucleated Red Blood Cells % 0 %; Platelet Count 163 10^3/cmm (157-399); Red Blood Count 4.92 10^6/uL (3.85-5.65); Red Cell Distribution Width 15.1 % (12.1-15.1); White Blood Count 5.64 10^3/uL (3.29-11.43)
[2024-12-16 13:41] LABS: Alanine Aminotransferase 21 U/L (0-33); Albumin Level 4.2 g/dL (3.5-5.2); Alkaline Phosphatase 92 U/L (35-105); Anion Gap 18.6 (5-19); Aspartate Amino Transferase 20 U/L (0-32); Blood Urea Nitrogen 15 mg/dL (6-20); Calcium 9.2 mg/dL (8.5-10.5); Carbon Dioxide 20 mmol/L (22-29); Chloride 101 mmol/L (98-107); Ferritin 8 ng/mL (15-150); Globulin 2.8 g/dL (1.3-4.6); Glomerular Filtration Rate 109.1 mL/min (90-130); Glucose 163 mg/dL (65-115); NT Pro B Type Natriuretic Pept 43 pg/mL (0-125); Osmolality Calculated 286 mOsm/kg (285-295); Potassium 3.6 mmol/L (3.5-5.1); Sodium 136 mmol/L (136-145); Total Bilirubin 0.2 mg/dL (0.15-1.2)
== END 2024-12-16 12:04 | disposition home or self-care (01) ==
LOC: LAB 12:08
PROVIDERS: PCP Nurse Practitioner Family; Visit Provider Internal Medicine Pulmonary Disease
DX: I50.812 Chronic right heart failure (principal)
CPT/HCPCS: 36415; 80053; 82728; 83880; 85025

== ENCOUNTER → 2025-03-05 14:58 | Outpatient (BNVA) | payer MEDICAID, SELFPAY | PROVIDERS: PCP Nurse Practitioner Family; Visit Provider Internal Medicine Pulmonary Disease | DX: Z79.899 Other long term (current) drug therapy (principal) | CPT/HCPCS: 85025 ==

== ENCOUNTER → 2025-03-24 15:22 | Outpatient (BNVA) | payer MEDICAID, SELFPAY | PROVIDERS: PCP Nurse Practitioner Family; Visit Provider Nurse Practitioner Family | DX: Z79.899 Other long term (current) drug therapy (principal) | CPT/HCPCS: 85025 ==

== ENCOUNTER → 2025-04-16 14:00 | Outpatient (BNVA) | payer MEDICAID, SELFPAY | PROVIDERS: PCP Nurse Practitioner Family; Referring Provider Internal Medicine Pulmonary Disease; Visit Provider Nurse Practitioner Family | DX: I50.812 Chronic right heart failure (principal) | CPT/HCPCS: 80053; 82728; 83880; 85025 ==

== ENCOUNTER → 2025-04-29 14:38 | Outpatient (BNVA) | payer MEDICAID, SELFPAY | PROVIDERS: PCP Nurse Practitioner Family; Visit Provider Nurse Practitioner Family | DX: Z79.899 Other long term (current) drug therapy (principal); I27.21 Secondary pulmonary arterial hypertension | CPT/HCPCS: 85025 ==

== ENCOUNTER → 2025-05-20 14:09 | Outpatient (BNVA) | payer MEDICAID, SELFPAY | PROVIDERS: PCP Nurse Practitioner Family; Visit Provider Nurse Practitioner Family | DX: Z79.899 Other long term (current) drug therapy (principal) | CPT/HCPCS: 85025 ==

== ENCOUNTER → 2025-06-09 13:27 | Outpatient (BNVA) | payer MEDICAID, SELFPAY | PROVIDERS: PCP Nurse Practitioner Family; Visit Provider Nurse Practitioner Family | DX: I27.21 Secondary pulmonary arterial hypertension (principal); Z79.899 Other long term (current) drug therapy | CPT/HCPCS: 85025 ==

== ENCOUNTER → 2025-07-01 13:57 | Outpatient (BNVA) | payer MEDICAID, SELFPAY | PROVIDERS: PCP Nurse Practitioner Family; Visit Provider Nurse Practitioner Family | DX: Z79.899 Other long term (current) drug therapy (principal) | CPT/HCPCS: 85025 ==

== ENCOUNTER → 2025-07-22 13:53 | Outpatient (BNVA) | payer MEDICAID, SELFPAY | PROVIDERS: PCP Nurse Practitioner Family; Visit Provider Nurse Practitioner Family | DX: D75.1 Secondary polycythemia (principal) | CPT/HCPCS: 85025 ==

== ENCOUNTER → 2025-08-05 13:40 | Outpatient (BNVA) | payer MEDICAID, SELFPAY | PROVIDERS: PCP Nurse Practitioner Family; Visit Provider Nurse Practitioner Family | DX: R74.01 Elevation of levels of liver transaminase levels (principal) | CPT/HCPCS: 85025 ==

== ENCOUNTER → 2025-09-02 10:40 | Outpatient (BNVA) | payer MEDICAID, SELFPAY | PROVIDERS: PCP Nurse Practitioner Family; Visit Provider Nurse Practitioner Family | DX: D75.1 Secondary polycythemia (principal) | CPT/HCPCS: 85025 ==